=== PATIENT | male | born 1945 | race Caucasian/White ===

== ENCOUNTER 2022-01-21 10:28 | Emergency (ER) | payer OTHER ==
[~2022-01-21] VITALS: Ht 182.9 cm; Wt 77.1 kg
[2022-01-21] MEDS ORDERED: SODIUM CHLORIDE 0.9% 500 ML IV ONE (11:00)
[2022-01-21 11:20] LABS: Basophils # (auto) 0 10 ^3/uL (0-0.2); Basophils % (auto) 0.2 % (0.0-2.0); Eosinophils # (auto) 0.1 10 ^3/uL (0-0.8); Eosinophils % (auto) 0.6 % (0.0-7.0); Hematocrit 39.1 % (41.0-53.0); Hemoglobin 13.1 g/dL (13.5-17.5); Lymphocytes # (auto) 0.9 10 ^3/uL (0.4-5.4); Lymphocytes % (auto) 10.1 % (10.0-50.0); Mean Corpuscular Hemoglobin 28.2 pg (28.0-32.0); Mean Corpuscular Hgb Conc. 33.4 g/dL (32.0-36.0); Mean Corpuscular Volume 84.5 fL (80.0-100.0); Monocytes # (auto) 0.7 10 ^3/uL (0-1.3); Monocytes % (auto) 7.4 % (0.0-12.0); Neutrophils # (auto) 7.3 10 ^3/uL (1.6-8.6); Neutrophils % (auto) 81.7 % (37.0-80.0); Red Blood Cells 4.63 10^6/uL (4.5-5.90)
[2022-01-21 11:34] LABS: INR 1.03 (0.9-1.15); Partial Thromboplastin Time 28.2 sec (24.6-33.4)
[2022-01-21 11:39] LABS: Albumin 3.7 g/dL (3.4-5.0); BUN/Creatinine Ratio 33.9; Calcium 10.1 mg/dL (8.5-10.1); Magnesium 2.2 mg/dL (1.6-2.6); Potassium 4.4 mmol/L (3.5-5.1)
[2022-01-21 11:42] LABS: Bilirubin, Total 0.5 mg/dL (0.2-1.0); Total Protein 6.2 g/dL (6.4-8.2)
[2022-01-21] MEDS ORDERED: ONDANSETRON HCL 4 MG/2 ML VIAL IV ONE (17:30)
[2022-01-21] MEDS ORDERED: MORPHINE SULFATE INJ 2 MG/ml SYRG IV ONE (17:30)
[2022-01-22 00:38] VITALS: BP 139/84
== END 2022-01-22 00:52 | disposition short-term general hospital (02) ==
LOC: ER 10:28 → EDBD 10:28 → ER 01-22 00:52
DX: S70.02XA Contusion of left hip, initial encounter (principal); R55 Syncope and collapse; K21.9 Gastro-esophageal reflux disease without esophagitis; E78.5 Hyperlipidemia, unspecified; Z86.73 Personal history of transient ischemic attack (TIA), and cerebral infarction without residual deficits; Z90.89 Acquired absence of other organs; Z88.5 Allergy status to narcotic agent; Z20.822 Contact with and (suspected) exposure to COVID-19; W19.XXXA Unspecified fall, initial encounter; Y93.89 Activity, other specified; Y92.89 Other specified places as the place of occurrence of the external cause; Y99.8 Other external cause status
CPT/HCPCS: 36415; 70450; 71045; 72192; 73502; 80053; 83735; 84484; 85025; 85610; 85730; 87426; 93005; 96360; 99285; J7040

== ENCOUNTER 2024-04-07 06:37 | Inpatient (IN) | payer OTHER ==
[~2024-04-07] VITALS: Ht 185.4 cm; Wt 101.5 kg
[2024-04-07 07:28] LABS: Basophils # (auto) 0 10 ^3/uL (0-0.2); Basophils % (auto) 0.2 % (0.0-2.0); Eosinophils # (auto) 0 10 ^3/uL (0-0.8); Eosinophils % (auto) 0.2 % (0.0-7.0); Hematocrit 47.3 % (41.0-53.0); Hemoglobin 16.3 g/dL (13.5-17.5); Lymphocytes # (auto) 1.1 10 ^3/uL (0.4-5.4); Mean Corpuscular Hemoglobin 30.7 pg (28.0-32.0); Mean Corpuscular Hgb Conc. 34.4 g/dL (32.0-36.0); Mean Corpuscular Volume 89.2 fL (80.0-100.0); Monocytes # (auto) 0.6 10 ^3/uL (0-1.3); Monocytes % (auto) 6.4 % (0.0-12.0); Neutrophils # (auto) 7.7 10 ^3/uL (1.6-8.6); Neutrophils % (auto) 81.2 % (37.0-80.0); Nucleated Red Blood Cells % 0.2 %; Platelet Count (auto) 269 10^3/uL (140-450); Red Cell Distribution Width 15.1 % (11.8-14.3); White Blood Cell 9.5 10^3/uL (4.4-10.8)
[2024-04-07 07:31] LABS: Chloride 109 mmol/L (98-107); Sodium 143 mmol/L (136-145)
[2024-04-07 07:32] LABS: Anion Gap 11 (5-15); Carbon Dioxide 23 mmol/L (20-30)
[2024-04-07 07:33] LABS: Calcium 10.2 mg/dL (8.7-10.4)
[2024-04-07 07:37] LABS: BUN/Creatinine Ratio 20.8 (10.0-20.0); Blood Urea Nitrogen 20 mg/dL (9-23); Glucose 149 mg/dL (74-106)
[2024-04-07 07:45] VITALS: PULSE 95; RESP 18; O2SAT 95
[2024-04-07] MEDS: ASPirin 81 mg TAB PO ONE (09:27)
[2024-04-07] MEDS: HEPARIN SODIUM (PORCINE) 5000 UNITS/ML 1ML VIAL IV ONE (11:06)
[2024-04-07] MEDS: HEPARIN DRIP/D5W 100UNITS/ML 250 ML IV SCH ×2 (11:21→19:15)
[2024-04-07 11:35] LABS: Basophils # (auto) 0 10 ^3/uL (0-0.2); Basophils % (auto) 0.1 % (0.0-2.0); Eosinophils # (auto) 0 10 ^3/uL (0-0.8); Hematocrit 46.8 % (41.0-53.0); Hemoglobin 16.2 g/dL (13.5-17.5); Lymphocytes # (auto) 0.9 10 ^3/uL (0.4-5.4); Lymphocytes % (auto) 6.8 % (10.0-50.0); Mean Corpuscular Hemoglobin 30.7 pg (28.0-32.0); Mean Corpuscular Hgb Conc. 34.6 g/dL (32.0-36.0); Mean Corpuscular Volume 88.8 fL (80.0-100.0); Monocytes # (auto) 0.7 10 ^3/uL (0-1.3); Monocytes % (auto) 5.4 % (0.0-12.0); Neutrophils # (auto) 11.3 10 ^3/uL (1.6-8.6); Neutrophils % (auto) 87.7 % (37.0-80.0); Nucleated Red Blood Cells % 0.1 %; Platelet Count (auto) 249 10^3/uL (140-450); Red Blood Cells 5.27 10^6/uL (4.5-5.90); Red Cell Distribution Width 14.7 % (11.8-14.3); White Blood Cell 12.9 10^3/uL (4.4-10.8)
[2024-04-07 12:20] LABS: INR 1.05 (0.9-1.15); Partial Thromboplastin Time 25.7 SEC (24.5-34.5); Prothrombin Time 11.1 sec (9.3-11.8)
[2024-04-07] MEDS: METOPROLOL TARTRATE 25 MG TAB PO SCH (15:46)
[2024-04-07] MEDS: ATORVASTATIN 20 MG TAB PO ONE (15:46)
[2024-04-07] MEDS ORDERED: NITROGLYCERIN 0.4 MG SL TAB SL PRN (16:30)
[2024-04-07] MEDS ORDERED: ONDANSETRON HCL 4 MG/2 ML VIAL IV PRN (16:30)
[2024-04-07] MEDS ORDERED: MORPHINE SULFATE INJ 2 MG/ml SYRG IV PRN (16:30)
[2024-04-07] MEDS: cefTRIAXone 1GM/50ML D5W 50 ML IV SCH (17:16)
[2024-04-07 18:30] LABS: COVID19 ANTIGEN SOFIA FIA NEGATIVE (NEGATIVE)
[2024-04-07 18:32] LABS: Alanine Aminotransferase 27 U/L (7-40); Albumin 4.2 g/dL (3.2-4.8); Alkaline Phosphatase 102 U/L (46-116); Anion Gap 5 (5-15); Aspartate Aminotransferase 33 U/L (13-40); BUN/Creatinine Ratio 20.8 (10.0-20.0); Blood Urea Nitrogen 16 mg/dL (9-23); Carbon Dioxide 24 mmol/L (20-30); Chloride 110 mmol/L (98-107); Glucose 112 mg/dL (74-106); Potassium 4.5 mmol/L (3.5-5.1); Sodium 139 mmol/L (136-145); Total Protein 6.4 g/dL (5.7-8.2)
[2024-04-07 18:40] LABS: INR 1.08 (0.9-1.15); Partial Thromboplastin Time 38.2 SEC (24.5-34.5); Prothrombin Time 11.4 sec (9.3-11.8)
[2024-04-07 19:18] LABS: Urine Bacteria FEW /hpf (None Seen); Urine Blood Negative /uL (Negative); Urine Clarity Clear (Clear); Urine Color Yellow (Yellow); Urine Mucus FEW (None Seen); Urine Protein, UAD TRACE (Negative); Urine Specific Gravity 1.034 (1.001-1.035); Urine Urobilinogen Normal (Negative); Urine WBC 2 /hpf (0 - 3); Urine pH 5.5 (5.0-9.0)
[2024-04-07 19:23] LABS: Amphetamine Screen, Urine Neg (NEGATIVE); Barbiturate Scree,Urine Neg (NEGATIVE); Benzodiazephine Screen, Urine Neg (NEGATIVE); Cocaine Screen, Urine Neg (NEGATIVE); Opiate Scree,Urine Neg (NEGATIVE); Phencyclidine Screen, Urine Neg (NEGATIVE)
[2024-04-07 19:24] LABS: Cannabinoid Screen, Urine Neg (NEGATIVE)
[2024-04-07 20:15] VITALS: PULSE 71; RESP 18; O2SAT 96
[2024-04-08 01:46] LABS: INR 1.08 (0.9-1.15); Partial Thromboplastin Time 42.7 SEC (24.5-34.5); Prothrombin Time 11.4 sec (9.3-11.8)
[2024-04-08] MEDS: HEPARIN DRIP/D5W 100UNITS/ML 250 ML IV SCH (02:15)
[2024-04-08 08:00] VITALS: PULSE 74; RESP 18; O2SAT 99
[2024-04-08 09:12] LABS: Basophils # (auto) 0 10 ^3/uL (0-0.2); Basophils % (auto) 0.2 % (0.0-2.0); Eosinophils # (auto) 0.1 10 ^3/uL (0-0.8); Eosinophils % (auto) 0.8 % (0.0-7.0); Hematocrit 44.2 % (41.0-53.0); Hemoglobin 15.2 g/dL (13.5-17.5); Lymphocytes # (auto) 1.2 10 ^3/uL (0.4-5.4); Lymphocytes % (auto) 14.9 % (10.0-50.0); Mean Corpuscular Hemoglobin 30.4 pg (28.0-32.0); Mean Corpuscular Hgb Conc. 34.3 g/dL (32.0-36.0); Mean Corpuscular Volume 88.6 fL (80.0-100.0); Monocytes # (auto) 0.7 10 ^3/uL (0-1.3); Monocytes % (auto) 8.5 % (0.0-12.0); Neutrophils # (auto) 5.9 10 ^3/uL (1.6-8.6); Neutrophils % (auto) 75.6 % (37.0-80.0); Platelet Count (auto) 223 10^3/uL (140-450); Red Blood Cells 4.99 10^6/uL (4.5-5.90); Red Cell Distribution Width 14.7 % (11.8-14.3); White Blood Cell 7.8 10^3/uL (4.4-10.8)
[2024-04-08 09:27] LABS: Calcium 10.1 mg/dL (8.7-10.4); Chloride 107 mmol/L (98-107); Potassium 4.3 mmol/L (3.5-5.1); Sodium 140 mmol/L (136-145)
[2024-04-08 09:28] LABS: Anion Gap 3 (5-15); Carbon Dioxide 30 mmol/L (20-30)
[2024-04-08 09:30] LABS: INR 1.11 (0.9-1.15); Partial Thromboplastin Time 61.3 SEC (24.5-34.5); Prothrombin Time 11.7 sec (9.3-11.8)
[2024-04-08 09:33] LABS: Blood Urea Nitrogen 18 mg/dL (9-23); Glucose 106 mg/dL (74-106)
[2024-04-08] MEDS: ASPirin 81 mg TAB PO SCH (10:05)
[2024-04-08] MEDS: PANTOPRAZOLE 40 MG/10 ML VIAL INJ IV ONE (14:53)
[2024-04-08 15:36] LABS: INR 1.09 (0.9-1.15); Partial Thromboplastin Time 52.4 SEC (24.5-34.5); Prothrombin Time 11.5 sec (9.3-11.8)
[2024-04-08 18:13] LABS: Basophils # (auto) 0 10 ^3/uL (0-0.2); Basophils % (auto) 0.3 % (0.0-2.0); Eosinophils # (auto) 0.1 10 ^3/uL (0-0.8); Eosinophils % (auto) 1.1 % (0.0-7.0); Hematocrit 45.8 % (41.0-53.0); Lymphocytes # (auto) 1.5 10 ^3/uL (0.4-5.4); Lymphocytes % (auto) 18.4 % (10.0-50.0); Mean Corpuscular Hemoglobin 30.6 pg (28.0-32.0); Mean Corpuscular Hgb Conc. 34.9 g/dL (32.0-36.0); Mean Corpuscular Volume 87.6 fL (80.0-100.0); Monocytes # (auto) 0.7 10 ^3/uL (0-1.3); Monocytes % (auto) 8.4 % (0.0-12.0); Neutrophils # (auto) 5.9 10 ^3/uL (1.6-8.6); Neutrophils % (auto) 71.8 % (37.0-80.0); Nucleated Red Blood Cells % 0.2 %; Platelet Count (auto) 248 10^3/uL (140-450); Red Blood Cells 5.22 10^6/uL (4.5-5.90); White Blood Cell 8.2 10^3/uL (4.4-10.8)
[2024-04-08 18:14] LABS: Chloride 107 mmol/L (98-107); Sodium 138 mmol/L (136-145)
[2024-04-08 18:15] LABS: Anion Gap 5 (5-15); Calcium 10.2 mg/dL (8.7-10.4); Carbon Dioxide 26 mmol/L (20-31)
[2024-04-08 18:20] LABS: BUN/Creatinine Ratio 21.3 (10.0-20.0); Blood Urea Nitrogen 17 mg/dL (9-23); Glucose 106 mg/dL (74-106)
[2024-04-08 18:28] LABS: INR 1.08 (0.9-1.15); Partial Thromboplastin Time 52.1 SEC (24.5-34.5); Prothrombin Time 11.4 sec (9.3-11.8)
[2024-04-08 20:00] VITALS: PULSE 96; RESP 16; O2SAT 99
[2024-04-08 22:20] VITALS: BP 143/99; PULSE 108; RESP 19; TEMP 97.9; O2SAT 94
[2024-04-08 22:40] LABS: INR 1.09 (0.9-1.15); Partial Thromboplastin Time 50.4 SEC (24.5-34.5); Prothrombin Time 11.5 sec (9.3-11.8)
[2024-04-08] MEDS: ATORVASTATIN 20 MG TAB PO SCH (23:26)
[2024-04-09] VITALS (17 sets, daily range): BP systolic 104–132; BP diastolic 65–84; PULSE 67–109; RESP 14–20; TEMP 97.6–98.4; O2SAT 91–98
[2024-04-09 08:41] LABS: Basophils # (auto) 0 10 ^3/uL (0-0.2); Basophils % (auto) 0.3 % (0.0-2.0); Eosinophils # (auto) 0.1 10 ^3/uL (0-0.8); Eosinophils % (auto) 1.2 % (0.0-7.0); Hematocrit 47.5 % (41.0-53.0); Hemoglobin 16.2 g/dL (13.5-17.5); Lymphocytes # (auto) 1.1 10 ^3/uL (0.4-5.4); Lymphocytes % (auto) 14.5 % (10.0-50.0); Mean Corpuscular Hemoglobin 30.2 pg (28.0-32.0); Mean Corpuscular Hgb Conc. 34.2 g/dL (32.0-36.0); Mean Corpuscular Volume 88.3 fL (80.0-100.0); Monocytes # (auto) 0.7 10 ^3/uL (0-1.3); Neutrophils # (auto) 5.9 10 ^3/uL (1.6-8.6); Nucleated Red Blood Cells % 0.1 %; Platelet Count (auto) 216 10^3/uL (140-450); Red Blood Cells 5.38 10^6/uL (4.5-5.90); Red Cell Distribution Width 14.6 % (11.8-14.3); White Blood Cell 7.9 10^3/uL (4.4-10.8)
[2024-04-09 08:59] LABS: Anion Gap 8 (5-15); Calcium 10.5 mg/dL (8.7-10.4); Carbon Dioxide 24 mmol/L (20-31); Chloride 107 mmol/L (98-107); Potassium 3.8 mmol/L (3.5-5.1); Sodium 139 mmol/L (136-145)
[2024-04-09 09:05] LABS: BUN/Creatinine Ratio 21.4 (10.0-20.0); Blood Urea Nitrogen 15 mg/dL (9-23); Glucose 100 mg/dL (74-106); Magnesium 2.1 mg/dL (1.6-2.6)
[2024-04-09] MEDS ORDERED: IODIXANOL 320MG/ML 100ML BTL IV ONE ×2 (09:25→10:37)
[2024-04-09] MEDS ORDERED: VERAPAMIL 2.5MG/ML INJ 2ML VIAL IV ONE (09:35)
[2024-04-09] MEDS ORDERED: ANGIOMAX 250 MG VIAL IV ONE (09:35)
[2024-04-09] MEDS ORDERED: fentaNYL CITRATE 100 MCG/2 ML VL ONE (09:35)
[2024-04-09] MEDS ORDERED: SODIUM CHL 0.9% 0 ML ONE (09:36)
[2024-04-09] MEDS ORDERED: MIDAZOLAM HCL 2MG/2ML 2ml VIAL (1mg/ml) ONE (09:36)
[2024-04-09] MEDS ORDERED: LIDOCAINE 2%HCL (LOCAL ANESTH.) INJ 20ML MDV ONE (09:36)
[2024-04-09] MEDS: PANTOPRAZOLE 40 MG/10 ML VIAL INJ IV SCH (10:00)
[2024-04-09] MEDS ORDERED: CLOPIDOGREL BISULFATE 75 MG TAB ONE (10:47)
[2024-04-09] MEDS ORDERED: CHOL20007 OR (14:07)
[2024-04-09] MEDS ORDERED: B-CO1CAP18 PO (14:07)
[2024-04-09] MEDS ORDERED: ASCO500T11 PO (14:07)
[2024-04-09] MEDS ORDERED: ASPI1TAB20 PO (14:08)
[2024-04-09] MEDS ORDERED: KRIL300C2 PO (14:08)
[2024-04-09] MEDS: clonazePAM 0.5 MG TAB PO PRN (15:45)
[2024-04-09 22:47] LABS: INR 1.1 (0.9-1.15); Partial Thromboplastin Time 27.6 SEC (24.5-34.5); Prothrombin Time 11.6 sec (9.3-11.8)
[2024-04-10] VITALS (8 sets, daily range): BP systolic 122–136; BP diastolic 63–82; PULSE 67–97; RESP 14–20; TEMP 97.1–98.6; O2SAT 95–98
[2024-04-10 06:55] LABS: Basophils # (auto) 0 10 ^3/uL (0-0.2); Basophils % (auto) 0.3 % (0.0-2.0); Eosinophils # (auto) 0.1 10 ^3/uL (0-0.8); Eosinophils % (auto) 1.7 % (0.0-7.0); Hematocrit 49.1 % (41.0-53.0); Hemoglobin 16.7 g/dL (13.5-17.5); Lymphocytes # (auto) 1.1 10 ^3/uL (0.4-5.4); Lymphocytes % (auto) 13.5 % (10.0-50.0); Mean Corpuscular Hemoglobin 30.6 pg (28.0-32.0); Mean Corpuscular Hgb Conc. 34.1 g/dL (32.0-36.0); Mean Corpuscular Volume 89.7 fL (80.0-100.0); Monocytes # (auto) 0.8 10 ^3/uL (0-1.3); Monocytes % (auto) 10.2 % (0.0-12.0); Neutrophils # (auto) 6.1 10 ^3/uL (1.6-8.6); Neutrophils % (auto) 74.3 % (37.0-80.0); Nucleated Red Blood Cells % 0.2 %; Platelet Count (auto) 228 10^3/uL (140-450); Red Blood Cells 5.47 10^6/uL (4.5-5.90); Red Cell Distribution Width 14.8 % (11.8-14.3); White Blood Cell 8.2 10^3/uL (4.4-10.8)
[2024-04-10 07:22] LABS: Alanine Aminotransferase 26 U/L (7-40); Albumin 4.1 g/dL (3.2-4.8); Alkaline Phosphatase 100 U/L (46-116); Anion Gap 10 (5-15); Aspartate Aminotransferase 29 U/L (13-40); BUN/Creatinine Ratio 15.9 (10.0-20.0); Blood Urea Nitrogen 11 mg/dL (9-23); Calcium 10.6 mg/dL (8.7-10.4); Carbon Dioxide 23 mmol/L (20-31); Chloride 107 mmol/L (98-107); Glucose 85 mg/dL (74-106); Potassium 3.9 mmol/L (3.5-5.1); Sodium 140 mmol/L (136-145)
[2024-04-10 07:23] LABS: Bilirubin, Total 1.6 mg/dL (0.2-1.0); Total Protein 6.4 g/dL (5.7-8.2)
[2024-04-10] MEDS: CLOPIDOGREL BISULFATE 75 MG TAB PO SCH (11:00)
[2024-04-10] MEDS: AMIODARONE BOLUS KIT 100 ML IV ONE (11:00)
[2024-04-10] MEDS ORDERED: METO-6 PO (17:47)
[2024-04-10] MEDS ORDERED: APIX2.5T PO (17:47)
[2024-04-10] MEDS ORDERED: FLE50T PO (17:47)
[2024-04-10] MEDS ORDERED: ATOR20TA50 PO (17:47)
[2024-04-10] MEDS ORDERED: CLOP75TA70 PO (17:47)
[2024-04-10] MEDS: APIXABAN 2.5 MG TAB PO SCH (21:55)
[2024-04-10] MEDS: FLECAINIDE ACETATE 50 MG TAB PO SCH (21:55)
[2024-04-11] MEDS ORDERED: METOPROLOL SUCCINATE XL 50 MG TAB PO SCH (10:00)
== END 2024-04-10 21:39 | disposition home health service (06) | DRG 321 ==
LOC: ER 06:37 → EDBD 06:37 → TELE 16:35 → ER 16:35 → TELE-CENTR 04-08 22:20
PROVIDERS: ADMIT Registered Nurse General Practice; ATTEND Internal Medicine
PROC: 027034Z Dilation of Coronary Artery, One Artery with Drug-eluting Intraluminal Device, Percutaneous Approach (ICD-10-PCS; principal; 2024-04-09)
PROC: 5A2204Z Restoration of Cardiac Rhythm, Single (ICD-10-PCS; 2024-04-09)
PROC: B211YZZ Fluoroscopy of Multiple Coronary Arteries using Other Contrast (ICD-10-PCS; 2024-04-09)
PROC: 4A023N7 Measurement of Cardiac Sampling and Pressure, Left Heart, Percutaneous Approach (ICD-10-PCS; 2024-04-09)
DX: I21.4 Non-ST elevation (NSTEMI) myocardial infarction (principal); I50.33 Acute on chronic diastolic (congestive) heart failure; I47.20 Ventricular tachycardia, unspecified; I69.354 Hemiplegia and hemiparesis following cerebral infarction affecting left non-dominant side; I25.10 Atherosclerotic heart disease of native coronary artery without angina pectoris; I21.A1 Myocardial infarction type 2; E78.5 Hyperlipidemia, unspecified; J45.909 Unspecified asthma, uncomplicated; K21.9 Gastro-esophageal reflux disease without esophagitis; I48.91 Unspecified atrial fibrillation; E66.9 Obesity, unspecified; Z20.822 Contact with and (suspected) exposure to COVID-19; I11.0 Hypertensive heart disease with heart failure; F03.A0 Unspecified dementia, mild, without behavioral disturbance, psychotic disturbance, mood disturbance, and anxiety; E11.9 Type 2 diabetes mellitus without complications; D72.829 Elevated white blood cell count, unspecified; Z80.9 Family history of malignant neoplasm, unspecified; Z88.5 Allergy status to narcotic agent; Z88.8 Allergy status to other drugs, medicaments and biological substances; Z79.899 Other long term (current) drug therapy; Z85.828 Personal history of other malignant neoplasm of skin; Z68.29 Body mass index [BMI] 29.0-29.9, adult; I25.2 Old myocardial infarction; Z95.5 Presence of coronary angioplasty implant and graft
CPT/HCPCS: 36415; 71045; 80048; 80053; 80307; 81001; 83036; 83735; 83880; 84443; 84484; 85025; 85610; 85730; 86850; 86900; 86901; 87426; 92941; 93005; 93306; 93458; 96365; 96375; 99152; 99291; G0378; J2250; J2470; Q9967

== ENCOUNTER 2024-09-27 21:36 | Emergency (ER) | payer MEDICARE, OTHER ==
[~2024-09-27] VITALS: Ht 177.8 cm; Wt 75.0 kg
[~2024-09-27 21:36] MED LIST: APIX2.5T PO; ASCO500T11 PO; ASPI1TAB20 PO; ATOR20TA50 PO; B-CO1CAP18 PO; CHOL20007 OR; CLOP75TA70 PO; FLE50T PO; KRIL300C2 PO; METO-6 PO
--- NOTE | 2024-09-27 22:00 | ED.PDOC ---
History of Present Illness HPI Comments 79 y/o M is BIBA for c/o head and facial pain, with lump to left-episcopalian and laceration to left-side of nose and lips, s/p mechanical fall and injury, today. Per EMS report, patient was ambulating back to his bed from his bathroom when he experienced a sudden episode of dizziness and then losing his balance and falling face forward onto a coffee table, nearby, this evening. Patient states on not losing consciousness and feeling residual dizziness, initially, after getting up before it, later, subsided on its after cleaning his injuries. EMS notes on patient being A&Ox4 and GCS 15, with all vitals stable, on scene. Patient has a reported history of Plavix use along with CVA and recent stent placement 1x month ago. Per [facility] medical record, patient has a reported history of CAD, cancer, CVA w/left-sided deficits, mild dementia, GERD, HLD, NSTEMI/V- tachycardia s/p cardioversion, and PTCA. At time of assessment, patient denies any nausea, vomiting, dizziness, vision or speech changes, or other associated symptoms or modifiers at this time. Time Seen by MD: 21:40 Reviewed Notes: Nurses Notes, Digital Assistant Notes, Medications, Allergies Allergies: Coded Allergies: Codeine (Verified Allergy, Unknown, 01/21/22) Diphenhydramine (Verified Allergy, Unknown, 04/07/24) Home Meds Active Scripts Metoprolol Succinate (Toprol Xl) 50 Mg Tab, 25 MG PO DAILY for 30 Days, #15 TAB Prov:SIDNEY NYE MD 04/10/24 Flecainide Acetate (TAMBOCOR TABLET) 50 Mg Tb, 50 MG PO Q12HR for 30 Days, #60 TAB Prov:SIDNEY NYE MD 04/10/24 Clopidogrel Bisulfate (CLOPIDOGREL) 75 Mg Tab, 75 MG PO DAILY for 30 Days, #30 TAB Prov:SIDNEY NYE MD 04/10/24 Atorvastatin Calcium (ATORVASTATIN CALCIUM) 20 Mg Tab, 40 MG PO HS for 30 Days, #60 TAB Prov:SIDNEY NYE MD 04/10/24 Apixaban Base (ELIQUIS) 2.5 Mg Tab, 2.5 MG PO BID for 30 Days, #60 TAB Prov:SIDNEY NYE MD 04/10/24 Reported Medications Aspirin (Aspir-81) 81 Mg Tab, 81 MG PO DAILY, TAB 04/09/24 Krill Oil (KRILL OIL) 300 Mg Cap, 300 MG PO, CAP 04/09/24 B-Complex Vitamins (Vitamin B Complex) 1 Cap Cap, PO, CAP 04/09/24 Ascorbic Acid (VITAMIN C TABLET) 500 Mg Tb, 1 TAB PO DAILY, #30 TAB 3 Refills 04/09/24 Cholecalciferol (VITAMIN D3) 2,000 Unit Tab, 2000 UNIT OR, TAB 04/09/24 Information Source: Patient, Emergency Med Personnel Mode of Arrival: EMS Severity: Moderate Timing: Hours Duration: Since onset Prehospital treatment: 12 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, 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 Past Medical History PAST MEDICAL HISTORY: CAD, Cancer, CVA (w/left-sided weakness), Dementia (mild), GERD, High Lipids, MA (NSTEMI/v-tsch s/p cardioversion) Surgical History: PTCA, Tonsillectomy Family History Family History: Family hx of Cancer Social History Smoker: Non-Smoker Alcohol: Denies ETOH Use Drugs: Denies Drug Use Lives In: Home All Other Systems: Reviewed and Negative (comprehensive review of systems negative unless otherwise stated in HPI) Physical Exam General Appearance: No Apparent Distress HEENT: PERRL/EOMI Neck: Non-Tender Respiratory: No Respiratory Distress Cardiovascular: No Edema, No JVD, No Murmur, No Gallop, Normal Peripheral Pulses, Regular Rate/Rhythm Breast Exam: Deferred Gastrointestinal: No Organomegaly, Non Tender Genitalia: Deferred Pelvic: Deferred Rectal: Deferred Extremities: Non-tender Neurologic: No Motor Deficits Cerebellar Function: NOT DONE Reflexes: NOT DONE Skin: Bruises Lymphatic: No Adenopathy Was a procedure done? Was a procedure done?: No Differential Dx Considerations may include: closed head injury, contusions, fractures, bruising, intracranial bleed, electrolyte imbalance, vertigo, dehydration X-Ray, Labs, Meds, VS Vital Signs Date Time Temp Pulse Resp B/P (MAP) Pulse Ox O2 Delivery O2 Flow Rate FiO2 09/27/24 22:11 87 17 97 Room Air* 0 21 09/27/24 22:10 98.1 87 17 135/64 (87) 97 98.1 09/27/24 21:40 98.4 67 18 142/87 (105) 97 98.4 Lab Test 3/17/25 22:51 09/27/24 21:55 Range/Units Troponin I High Sensitivity 11 12 </=54 ng/L White Blood Count 11.1 H 4.4-10.8 10^3/uL Red Blood Count 5.10 4.5-5.90 10^6/uL Hemoglobin 15.4 13.5-17.5 g/dL Hematocrit 44.8 41.0-53.0 % Mean Corpuscular Volume 87.8 80.0-100.0 fL Mean Corpuscular Hemoglobin 30.3 28.0-32.0 pg Mean Corpuscular Hemoglobin Concent 34.5 32.0-36.0 g/dL Red Cell Distribution Width 14.7 H 11.8-14.3 % Platelet Count 266 140-450 10^3/uL Mean Platelet Volume 7.1 6.9-10.8 fL Neutrophils (%) (Auto) 79.1 37.0-80.0 % Lymphocytes (%) (Auto) 12.4 10.0-50.0 % Monocytes (%) (Auto) 6.9 0.0-12.0 % Eosinophils (%) (Auto) 1.2 0.0-7.0 % Basophils (%) (Auto) 0.4 0.0-2.0 % Neutrophils # (Auto) 8.8 H 1.6-8.6 10 ^3/uL Lymphocytes # (Auto) 1.4 0.4-5.4 10 ^3/uL Monocytes # (Auto) 0.8 0-1.3 10 ^3/uL Eosinophils # (Auto) 0.1 0-0.8 10 ^3/uL Basophils # (Auto) 0 0-0.2 10 ^3/uL Nucleated Red Blood Cells 0.0 % Sodium Level 143 136-145 mmol/L Potassium Level 4.6 3.5-5.1 mmol/L Chloride Level 107 98-107 mmol/L Carbon Dioxide Level 29 20-31 mmol/L Anion Gap 7 5-15 Blood Urea Nitrogen 23 9-23 mg/dL Creatinine 0.97 0.700-1.30 mg/dL Glomerular Filtration Rate Calc 80 >90 mL/min BUN/Creatinine Ratio 23.7 H 10.0-20.0 Serum Glucose 109 H 74-106 mg/dL Calcium Level 10.5 H 8.7-10.4 mg/dL Current Medications Medications (Trade) Dose Ordered Sig/Noemí Route Start Time Stop Time Status Last Admin Diphtheria/ Tetanus/Acell Pertussis (Boostrix T-Dap) 0.5 ml ONCE ONCE IM 09/27/24 21:45 09/27/24 21:46 DC 09/27/24 22:32 Time of 1ST Reevaluation: 22:10 Reevaluation 1ST: Unchanged Patient Education/Counseling: Diagnosis, Treatment Family Education/Counseling: No Family Present Additional Information Previous visits reviewed: Apr 07 2024 encounter for SOB w/V-tach s/p cardioversion and non STEMI Additional independent historians interviewed: EMS Ordered: troponin, CT head w/o contrast, CXR, UA, CBC, BMP Concur with imaging result findings: CXR, CT head w/o contrast Discussed results with medical staff and: patient Departure 1 Departure Time of Disposition: 23:32 (Patients workup is benign. He is feeling well and had a mechanical fall.) Impression: Primary Impression: History of fall Additional Impression: Facial contusion Qualified Codes: S00.83XA - Contusion of other part of head, initial encounter Disposition: HOME / SELF CARE / HOMELESS Condition: Stable Additional Instructions: Your workup is benign. Please follow up with your regular doctor. Discharged With: Spouse Critical Care Note Critical Care Time?: No Stability Stability form required: No Heart Score Heart Score: Heart Score Response (Comments) Value History Moderate Suspicious 1 EKG Normal 0 Age >65 2 Risk Factors 1 or 2 risk factors 1 Troponin N/A 0 Total 4 I personally scribed for DAVIAN MONTELONGO MD ([email or web address]) on 09/27/24 at 22:00. Electronically submitted by Aayush Rowan ([email or web address]). I personally scribed for DAVIAN MONTELONGO MD ([email or web address]) on 09/27/24 at 22:03. Electronically submitted by Aayush Rowan ([email or web address]). DAVIAN MONTELONGO MD Sep 27, 2024 22:00
[2024-09-27 22:08] LABS: Basophils # (auto) 0 10 ^3/uL (0-0.2); Basophils % (auto) 0.4 % (0.0-2.0); Eosinophils # (auto) 0.1 10 ^3/uL (0-0.8); Eosinophils % (auto) 1.2 % (0.0-7.0); Hematocrit 44.8 % (41.0-53.0); Hemoglobin 15.4 g/dL (13.5-17.5); Lymphocytes # (auto) 1.4 10 ^3/uL (0.4-5.4); Lymphocytes % (auto) 12.4 % (10.0-50.0); Mean Corpuscular Hemoglobin 30.3 pg (28.0-32.0); Mean Corpuscular Hgb Conc. 34.5 g/dL (32.0-36.0); Mean Corpuscular Volume 87.8 fL (80.0-100.0); Monocytes # (auto) 0.8 10 ^3/uL (0-1.3); Monocytes % (auto) 6.9 % (0.0-12.0); Neutrophils # (auto) 8.8 10 ^3/uL (1.6-8.6); Neutrophils % (auto) 79.1 % (37.0-80.0); Platelet Count (auto) 266 10^3/uL (140-450); Red Cell Distribution Width 14.7 % (11.8-14.3); White Blood Cell 11.1 10^3/uL (4.4-10.8)
[2024-09-27 22:10] VITALS: BP 135/64; TEMP 98.1
[2024-09-27 22:11] VITALS: PULSE 87; RESP 17; O2SAT 97
[2024-09-27 22:20] LABS: Anion Gap 7 (5-15); Carbon Dioxide 29 mmol/L (20-31); Chloride 107 mmol/L (98-107); Potassium 4.6 mmol/L (3.5-5.1); Sodium 143 mmol/L (136-145)
[2024-09-27 22:25] LABS: BUN/Creatinine Ratio 23.7 (10.0-20.0)
[2024-09-27 22:27] LABS: Blood Urea Nitrogen 23 mg/dL (9-23); Calcium 10.5 mg/dL (8.7-10.4); Glucose 109 mg/dL (74-106)
[2024-09-27] MEDS: TETANUS-DIPTH-ACEL PERTUSSIS 0.5ML SYR Tdap IM ONE (22:32)
--- NOTE | 2024-09-27 22:40 | DVH ---
CHEST RADIOGRAPH Indication: FALL Technique: Single frontal view of the chest was obtained Comparison: XY CHEST PORTABLE on DOS: 04/10/24, XY CHEST PORTABLE on DOS: 04/09/24, XY CHEST PORTABLE o n DOS: 04/07/24 FINDINGS: Lines and Tubes: None Lungs: Development of bilateral perihilar infiltrates prior to 04/10/2024. Pleura: No effusion. No pneumothorax. Cardiomediastinal contours: Cardiac size stable compared to 03/21/2024 Bones: No acute osseous abnormality. IMPRESSION: 1. Interval development of bilateral perihilar infiltrates.
--- NOTE | 2024-09-27 22:47 | DVH ---
EXAM: CT HEAD WITHOUT CONTRAST INDICATION: fall TECHNIQUE: CT of the head without intravenous contrast. Radiation Dose Information: CT Dose: CTDI volume is 66.48 mGy. Dose-length product is 3320.13 mGy*cm The dose indicators for CT are the volume Computed Tomography (CT) Dose Index (CTDIvol) and the Dose Length Product (DLP), and are measured in units of mGy and mGy-cm, respectively. These indicators are not patient dose, but values generated from the CT scanner acquisition factors. The report includes radiation exposure data for exposures received during this examination. COMPARISON: HEAD WITHOUT CONTRAST on DOS: 01/21/22 FINDINGS: There is no evidence of acute intracranial hemorrhage, extra-axial collection, mass effect, midline s hift, herniation or hydrocephalus. Area previous ischemia in the right temporal lobe appears 12 progr essed The ventricles, sulci and cisterns are age appropriate. The white-white differentiation is intact. Patchy periventricular and subcortical white matter hypoattenuation is nonspecific but may be related to small vessel ischemic disease. The visualized paranasal sinuses and mastoid air cells are clear. The surrounding soft tissues and osseous structures are unremarkable. IMPRESSION: 1. No acute intracranial hemorrhage 2. Old right temporal lobe infarct seen on prior study 01/21/2022.
--- NOTE | 2024-09-27 22:54 | DVH ---
CT OF THE CERVICAL SPINE WITHOUT CONTRAST HISTORY: FALL COMPARISON: None TECHNIQUE: Helical images through the cervical spine were obtained without contrast. Sagittal and cor onal reformats were obtained. One or more of the following radiation dose reduction techniques were u sed for this examination: automated exposure control, adjustment of the mA and/or kV according to pat ient size, use of iterative reconstruction technique. FINDINGS: There is increased lordotic curvature. There is severe generalized disc disease with loss of interver tebral disc space at all levels of the visualized thoracic spine and cervical spine. There is been a degenerative fusion of C2 with C3. Dens is intact neural foramina appear to be unrema rkable base of skull is normal there is sphenoid sinus disease in patient has has teeth fragments pro jecting into the bases of the right and left maxillary sinuses. There are significant degenerative changes involving the left temporomandibular joint. Axial images demonstrate that the internal auditory canals mastoid air cells and middle ears are unre markable. The neural foramina at C2-C3 are normal. Neural foramina at C3-C4 are slightly narrowed left neural foramen measures 3.9 mm right neural bethany en measures 3.5 mm. Neural foramina at C4-C5 are also narrowed left neural foramen measures 2.4 mm right neural foramen m easures 2.05 mm. Neural foramina at C5-C6 are also narrowed right neural foramen measures 3.2 mm and left neural bethany en measures 2.83 mm. At C6-C7 right neural foramen measures 2.65 mm left neural foramen measures 3.92 mm in C7-T1 neural f oramina appear to be within normal limits. Apices of the lungs are clear. IMPRESSION: 1. 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 There are multiple narrowed neural foramina. There is also sinus disease involving the sphenoid air cells patient also has variant teeth projecting into the bases of the maxillary sinuses bilaterally.
--- NOTE | 2024-09-27 23:00 | DVH ---
HISTORY: FALL TECHNIQUE: Nonenhanced axial images through the facial bones with coronal and sagittal MPR. Radiation Dose Information: CT Dose: CTDI volume is 66 mGy. Dose-length product is 3300 mGy*cm COMPARISON: CT head obtained earlier today. FINDINGS: Mandible: Unremarkable Maxilla: Unremarkable Zygomatic arches: Unremarkable Nasal bone: Unremarkable Orbits: Unremarkable Sinuses: Clear Facial swelling: None IMPRESSION: 1. No acute facial fractures. Radiation optimization: All CT scans at this facility use at least one of these dose optimization melania hniques: automated exposure control mA and/or kV adjustment per patient size (includes targeted exam s where dose is matched to clinical indication) or iterative reconstruction.
== END 2024-09-28 00:09 | disposition home or self-care (01) ==
LOC: EDBD 21:36 → ER 21:36
DX: S00.83XA Contusion of other part of head, initial encounter (principal); E78.5 Hyperlipidemia, unspecified; F03.A0 Unspecified dementia, mild, without behavioral disturbance, psychotic disturbance, mood disturbance, and anxiety; I25.2 Old myocardial infarction; Z79.01 Long term (current) use of anticoagulants; Z79.899 Other long term (current) drug therapy; Z86.73 Personal history of transient ischemic attack (TIA), and cerebral infarction without residual deficits; Z88.5 Allergy status to narcotic agent; Z90.89 Acquired absence of other organs; Z79.02 Long term (current) use of antithrombotics/antiplatelets; Z79.82 Long term (current) use of aspirin; W01.0XXA Fall on same level from slipping, tripping and stumbling without subsequent striking against object, initial encounter; Y93.89 Activity, other specified; Y92.89 Other specified places as the place of occurrence of the external cause; Y99.8 Other external cause status
CPT/HCPCS: 36415; 70450; 70486; 71045; 72125; 80048; 84484; 85025; 90471; 90715